=== PATIENT | female | born 1950 | race Caucasian/White ===

== ENCOUNTER 2024-05-07 16:13 | Observation (INO) ==
[2024-05-07 17:12] LABS: BASOPHILS # (AUTO) 0.3 X10^3/uL (0.0-0.1); BASOPHILS % (AUTO) 2.9 % (0.2-1.0); EOSINOPHILS # (AUTO) 0.4 x10^3/uL (0.0-0.2); EOSINOPHILS % (AUTO) 4.1 % (0.9-2.9); HEMATOCRIT 33.9 % (36.0-47.0); HEMOGLOBIN 11.3 g/dL (12.0-16.0); LYMPHOCYTES # (AUTO) 2.5 X10^3/uL (1.3-2.9); LYMPHOCYTES % (AUTO) 23.5 % (21.0-51.0); MEAN CORPUSCULAR HEMOGLOBIN 28.5 pg (27.0-34.0); MEAN CORPUSCULAR HGB CONC 33.3 g/dL (33.0-35.0); MEAN CORPUSCULAR VOLUME 85.7 fL (80.0-100.0); MEAN PLATELET VOLUME 8.5 fL (7.4-11.0); MONOCYTES # (AUTO) 0.3 x10^3/uL (0.3-0.8); MONOCYTES % (AUTO) 2.8 % (0.0-13.0); NEUTROPHILS # (AUTO) 7.1 x10^3/uL (2.2-4.8); NEUTROPHILS % (AUTO) 66.7 % (42.0-75.0); PLATELET COUNT 178 X10^3/uL (150.0-450.0); RED BLOOD COUNT 3.96 X10^6/uL (3.5-5.4); RED CELL DISTRIBUTION WIDTH 15.6 % (11.6-16.5); WHITE BLOOD COUNT 10.6 X10^3/uL (3.6-10.0)
[2024-05-07 17:23] LABS: ALANINE AMINOTRANSFERASE 22 Units/L (12-78); ALKALINE PHOSPHATASE 120 Units/L (46-116); ASPARTATE AMINO TRANSFERASE 23 Units/L (15-37); BLOOD UREA NITROGEN 7 mg/dL (7-18); CALCIUM 8.4 mg/dL (8.5-10.1); CARBON DIOXIDE 29.9 mmol/L (21-32); CHLORIDE 103 mmol/L (98-107); COR CA(FOR HYPOALB) 9.2 mg/dL (8.5-10.1); COR NA(FOR HYPERGLY) 140 mmol/L (136-145); CREATININE 1.08 mg/dL (0.55-1.02); GLUCOSE 114 mg/dL (65-99); LIPASE 35 Units/L (16-77); POTASSIUM 3.8 mmol/L (3.5-5.1); SODIUM 140 mmol/L (136-145); TOTAL PROTEIN 6.2 g/dL (6.4-8.2); eGFR NON BLACK RACES 53 (>60)
[2024-05-07 17:27] LABS: BILIRUBIN,URINE NEGATIVE (NEGATIVE); BLOOD/HEMOGLOBIN,URINE 2+ (NEGATIVE); GLUCOSE, URINE NEGATIVE (NEGATIVE); KETONES,URINE NEGATIVE (NEGATIVE); LEUKOCYTE ESTERASE ,URINE 1+ (NEGATIVE); NITRITES,URINE NEGATIVE (NEGATIVE); PROTEIN,URINE 1+ (NEGATIVE); UROBILINOGEN,URINE NORMAL (NORMAL)
[2024-05-07 17:34] LABS: APPEARANCE,URINE CLEAR (CLEAR); BACTERIA,URINE TRACE /HPF (NEGATIVE); COLOR,URINE PALE YELLOW (YELLOW); RBC,URINE 0-2 /HPF (0-3); SQUAMOUS EPITHELIAL CELL,UR RARE /HPF (NEGATIVE)
[2024-05-07] MEDS: ZOFRAN ODT PO PRN (17:56)
--- NOTE | 2024-05-07 21:24 | CT ---
EXAM: CT ABDOMEN AND PELVIS WITHOUT INTRAVENOUS CONTRAST HISTORY: Left-sided abdominal pain. TECHNIQUE: Spiral axial CT images are obtained through the abdomen and pelvis without the administrat ion of intravenous contrast. Additional coronal and sagittal reformatted images are reconstructed. COMPARISON: None available. FINDINGS: GASTROINTESTINAL TRACT: There is evidence for diffuse colonic diverticulosis with acute sigmoid diver ticulitis, marked by colonic wall thickening and pericolonic streaky inflammatory change. No drainabl e fluid collection, free air, or abscess formation seen. No evidence for bowel herniation, bowel obst ruction, or colitis. A normal-appearing appendix is seen. GENITOURINARY SYSTEM: The kidneys are unremarkable. There is no ureteral calculus or stigmata of obst ructive uropathy. The urinary bladder is grossly unremarkable for a non-dedicated exam. CT ABDOMEN: Status post cholecystectomy. Elongation of the right lobe of the liver (up to 21.8 cm CC ) in keeping with hepatomegaly versus Mt's lobe (anatomical variant). Aortoiliac atherosclerotic disease, without aneurysm formation. The spleen, pancreas, adrenal glands, and inferior vena cava are within normal limits for a noncontrast CT scan. There is no intra-abdominal or retroperitoneal lymp hadenopathy, free fluid, or free air seen. No abdominal herniation is noted. CT PELVIS: Status post hysterectomy. No pelvic sidewall or inguinal lymphadenopathy is seen. No i nguinal herniation is noted. No free fluid or free air is seen. BONES AND JOINTS: The visualized bony structures are within normal limits. LUNG BASES: The lung bases are clear. IMPRESSION: 1. Evidence for acute sigmoid diverticulitis, marked by colonic wall thickening and pericolonic stre aky inflammatory change. 2. No drainable fluid collection, free air, or abscess formation seen. 3. No evidence for bowel herniation, bowel obstruction, appendicitis or colitis. 4. No evidence for ureteral stones or obstructive uropathy. 5. Elongation of the right lobe of the liver (up to 21.8 cm CC) in keeping with hepatomegaly versus Mt's lobe (anatomical variant). 6. No free fluid, free air, mass lesions, or lymphadenopathy seen. 7. Status post cholecystectomy and hysterectomy. THIS IS AN ELECTRONICALLY VERIFIED FINAL REPORT 05/07/2024 9:11 PM - Electronically signed by Barrett Helton MD
[2024-05-07] MEDS ORDERED: NS 250 ML IV 25 ML IV PRN (21:43)
[2024-05-07] MEDS ORDERED: DECADRON INJ IM ONE (21:50)
--- NOTE | 2024-05-07 21:57 | ED.ABDFE ---
HPI Time Seen Time Seen by Provider: 05/07/24 16:56 PCP Primary Care Physician: Dmitriy Hardin Complaint Doctors Chief Complaint Comments: 73 yo F, hx of diverticulitis, also hx of idiopathic angioedema, c/o LLQ abd pain for past 2 wk, accomp by diarrhea. finished a course of cipro 5-6d ago, states pain became worse the past couple days, with radiation to bilat flank. c/o daily diarrhea 5-6x/d. States she woke with "hives" on extremities today. Denies dyspnea. Chief Complaint:: Pt c/o moderate sharp LLQ pain since 04/17/2024. Pt states sometimes it will radiate to the RLQ of her abdomen. Admits diarrhea. Denies fever, vomiting or chills. Pt states she did 10 days of Cipro and that seemed to help but returned after she completed her medication. COVID-19 Coronavirus risk:travel/contact w/high risk person: No Has patient experienced Coronavirus symptoms: No Source History Provided: Patient Mode of arrival Mode of Arrival: Ambulatory Timing Onset of Chief Complaint: 04/17/24 PMH PMH Past Medical History: Yes Past Medical History: GERD, Gout, Hypertension and Hypothyroidism Past Surgical History: Yes Surgical History: Cholecystectomy and Hysterectomy Past Surgical History Comment: Heart ablation Family History History of Family Medical Conditions: Yes Family Medical History: Diabetes Mellitus, Cancer, [place] and Hypertension Social History Type of Tobacco Use: None Alcohol Use: None Do you use any recreational Drugs:: No Lives With: Alone Lives Where: Home Travel Risk Coronavirus risk:travel/contact w/high risk person: No Has patient experienced Coronavirus symptoms: No Infectious screening Have you traveled outside the country in the last 6 months?: No Isolation: Standard ROS Review of Systems Gastrointestinal/Abdominal: Abdominal Pain (LLQ) and Diarrhea; negative Vomiting Integumentary: Rash All Other Systems: Reviewed and Negative PE Vital Signs Vitals: Vital Signs Temperature 98.1 F Pulse Rate 89 Respiratory Rate 18 Blood Pressure 140/63 O2 Sat by Pulse Oximetry 98 General Limitations: No Limitations and Language Barrier General Appearance: Alert and In No Apparent Distress Head Head Exam: Normal Inspection Eyes Eye exam: Normal Appearance ENT ENT Exam: Normal Exam Neck Neck Exam: Normal Inspection Chest Chest Inspection: Normal Inspection Respiratory Respiratory Exam: Normal Lung Sounds Bilat Cardiovascular Cardiovascular Exam: Regular Rate and Normal Rhythm Abdominal Exam Abdominal Exam: Soft; negative Guarding or Rebound Abdominal Tenderness: LLQ Rectal Rectal Exam: Deferred Back Back Exam: Normal Inspection Extremeties Extremities Exam: Normal Inspection Neurologic Neurological Exam: Alert and Oriented X3 Psychiatric Psychiatric Exam: Normal Affect and Normal Mood Skin Skin Exam: Rash (mild urticaria on all 4 ext.) COURSE Consultation Consultation Comments: Accepted to med/surg by Dr Barth at 2150 [facility] Labs Reviewed 05/07/24 17:03 05/07/24 17:03 Laboratory: WBC 10.6 X10^3/uL (3.6-10.0) H 05/07/24 17:03 RBC 3.96 X10^6/uL (3.5-5.4) 05/07/24 17:03 Hgb 11.3 g/dL (12.0-16.0) L 05/07/24 17:03 Hct 33.9 % (36.0-47.0) L 05/07/24 17:03 MCV 85.7 fL (80.0-100.0) 05/07/24 17:03 MCH 28.5 pg (27.0-34.0) 05/07/24 17:03 MCHC 33.3 g/dL (33.0-35.0) 05/07/24 17:03 RDW 15.6 % (11.6-16.5) 05/07/24 17:03 Plt Count 178 X10^3/uL (150.0-450.0) 05/07/24 17:03 MPV 8.5 fL (7.4-11.0) 05/07/24 17:03 Neut % (Auto) 66.7 % (42.0-75.0) 05/07/24 17:03 Lymph % (Auto) 23.5 % (21.0-51.0) 05/07/24 17:03 [place] % (Auto) 2.8 % (0.0-13.0) 05/07/24 17:03 Eos % (Auto) 4.1 % (0.9-2.9) H 05/07/24 17:03 Baso % (Auto) 2.9 % (0.2-1.0) H 05/07/24 17:03 Neut # (Auto) 7.1 x10^3/uL (2.2-4.8) H 05/07/24 17:03 Lymph # (Auto) 2.5 X10^3/uL (1.3-2.9) 05/07/24 17:03 [place] # (Auto) 0.3 x10^3/uL (0.3-0.8) 05/07/24 17:03 Eos # (Auto) 0.4 x10^3/uL (0.0-0.2) H 05/07/24 17:03 Baso # (Auto) 0.3 X10^3/uL (0.0-0.1) H 05/07/24 17:03 Absolute Nucleated RBC 0.1 /100WBC 05/07/24 17:03 Sodium 140 mmol/L (136-145) 05/07/24 17:03 Corrected Sodium 140 mmol/L (136-145) 05/07/24 17:03 Potassium 3.8 mmol/L (3.5-5.1) 05/07/24 17:03 Chloride 103 mmol/L (98-107) 05/07/24 17:03 Carbon Dioxide 29.9 mmol/L (21-32) 05/07/24 17:03 BUN 7 mg/dL (7-18) 05/07/24 17:03 Creatinine 1.08 mg/dL (0.55-1.02) H 05/07/24 17:03 Est GFR (MDRD) Af Amer > 60 (>60) 05/07/24 17:03 Est GFR (MDRD) Non-Af 53 (>60) L 05/07/24 17:03 Glucose 114 mg/dL (65-99) H 05/07/24 17:03 Calcium 8.4 mg/dL (8.5-10.1) L 05/07/24 17:03 Corrected Calcium 9.2 mg/dL (8.5-10.1) 05/07/24 17:03 Total Bilirubin 0.30 mg/dL (0.2-1.0) 05/07/24 17:03 AST 23 Units/L (15-37) 05/07/24 17:03 ALT 22 Units/L (12-78) 05/07/24 17:03 Alkaline Phosphatase 120 Units/L (46-116) H 05/07/24 17:03 Total Protein 6.2 g/dL (6.4-8.2) L 05/07/24 17:03 Albumin 3.0 g/dL (3.4-5.0) L 05/07/24 17:03 Globulin 3.2 g/dL (2.5-4.5) 05/07/24 17:03 Albumin/Globulin Ratio 0.9 Ratio (1.1-2.1) L 05/07/24 17:03 Lipase 35 Units/L (16-77) 05/07/24 17:03 Specimen Type Clean catch urine 05/07/24 17:14 Urine Color Pale yellow (YELLOW) 05/07/24 17:14 Urine Appearance Clear (CLEAR) 05/07/24 17:14 Urine pH 6.0 (5.0 - 8.0) 05/07/24 17:14 Ur Specific [place] 1.015 (1.000-1.030) 05/07/24 17:14 Urine Protein 1+ (NEGATIVE) 05/07/24 17:14 Urine Glucose (UA) Negative (NEGATIVE) 05/07/24 17:14 Urine Ketones Negative (NEGATIVE) 05/07/24 17:14 Urine Blood 2+ (NEGATIVE) 05/07/24 17:14 Urine Nitrite Negative (NEGATIVE) 05/07/24 17:14 Urine Bilirubin Negative (NEGATIVE) 05/07/24 17:14 Urine Urobilinogen Normal (NORMAL) 05/07/24 17:14 Ur Leukocyte Esterase 1+ (NEGATIVE) 05/07/24 17:14 Urine RBC 0-2 /HPF (0-3) 05/07/24 17:14 Urine WBC 0-2 /HPF (0-5) 05/07/24 17:14 Ur Squamous Epith Cells Rare /HPF (NEGATIVE) 05/07/24 17:14 Urine Bacteria Trace /HPF (NEGATIVE) 05/07/24 17:14 Ur Culture Indicated? No/not indicated 05/07/24 17:14 Opioid Opioid Risk Tool Age (Matt box if 16-45): No History of Preadolescent Sexual Abuse: No Total: 0 Total Score Risk Category: Low Risk Copyright: Ray OVIEDO predicting aberrant behaviors Discharge Plan Diagnosis Discharge Problem: Diverticulitis, Acute urticaria Discharge Plan Patient Disposition: 09 ADMITTED INPATIENT Condition: Stable Health Concerns: Post Hospitalization: new medications and changes needed to prevent readmission or further decline. Pt educated and given instructions on all concerns. Plan of Treatment: Continue with present treatment and follow up plan. Pt is to keep follow up appointment as instructed and take medications as ordered. Orders to Discharge Patient Discharge Orders: Transfer (Routine); Ordered 05/07/24 Ordered By: Ron Haney Follow ups/Referrals Follow ups/Referrals: Duane Hardin [Primary Care Provider] - 3 days Instructions Stand Alone Forms: Find Help Web Site, Post Hospital Follow Up Care
[2024-05-07] MEDS ORDERED: DECADRON INJ IVP ONE (22:17)
[2024-05-07] MEDS: NS 1,000 ML IV 1,000 ML IV SCH (22:34)
[2024-05-07] MEDS: FLAGYL IV PREMIX 500 MG BAG 500 MG/100 ML BAG IV SCH (22:34)
[2024-05-07] MEDS: BENADRYL INJ 50 MG VIAL IVP ONE (22:34)
[2024-05-07 23:31] VITALS: BMI 27.1
[2024-05-07] MEDS: ZOFRAN ODT ONE (23:46)
[2024-05-08] MEDS: ZOSYN VIAL 4.5 GRAMS 4.5 G in NS 100 ML IV 100 ML IV SCH (00:04)
[2024-05-08] MEDS: DECADRON INJ IVP ONE (00:08)
[2024-05-08 05:24] LABS: BASOPHILS % (AUTO) 0.3 % (0.2-1.0); EOSINOPHILS % (AUTO) 0.1 % (0.9-2.9); HEMATOCRIT 35.8 % (36.0-47.0); HEMOGLOBIN 11.7 g/dL (12.0-16.0); LYMPHOCYTES # (AUTO) 0.8 X10^3/uL (1.3-2.9); LYMPHOCYTES % (AUTO) 8.1 % (21.0-51.0); MEAN CORPUSCULAR HGB CONC 32.7 g/dL (33.0-35.0); MEAN CORPUSCULAR VOLUME 85.6 fL (80.0-100.0); MEAN PLATELET VOLUME 8.7 fL (7.4-11.0); MONOCYTES # (AUTO) 0.1 x10^3/uL (0.3-0.8); MONOCYTES % (AUTO) 0.5 % (0.0-13.0); NEUTROPHILS # (AUTO) 9.3 x10^3/uL (2.2-4.8); PLATELET COUNT 184 X10^3/uL (150.0-450.0); RED BLOOD COUNT 4.18 X10^6/uL (3.5-5.4); RED CELL DISTRIBUTION WIDTH 15.5 % (11.6-16.5); WHITE BLOOD COUNT 10.2 X10^3/uL (3.6-10.0)
[2024-05-08 05:48] LABS: ALANINE AMINOTRANSFERASE 25 Units/L (12-78); ALKALINE PHOSPHATASE 108 Units/L (46-116); ASPARTATE AMINO TRANSFERASE 26 Units/L (15-37); BLOOD UREA NITROGEN 5 mg/dL (7-18); CALCIUM 8.8 mg/dL (8.5-10.1); CARBON DIOXIDE 29.1 mmol/L (21-32); CHLORIDE 106 mmol/L (98-107); COR CA(FOR HYPOALB) 9.6 mg/dL (8.5-10.1); COR NA(FOR HYPERGLY) 144 mmol/L (136-145); CREATININE 0.98 mg/dL (0.55-1.02); GLUCOSE 153 mg/dL (65-99); MAGNESIUM 1.9 mg/dL (2.0-2.9); POTASSIUM 4.2 mmol/L (3.5-5.1); SODIUM 143 mmol/L (136-145); TOTAL PROTEIN 6.3 g/dL (6.4-8.2); eGFR NON BLACK RACES 59 (>60)
[2024-05-08 06:58] LABS: PLATELET MORPHOLOGY COMMENT NORMAL (NORMAL)
[2024-05-08 07:00] LABS: STOMATOCYTES PRESENT
[2024-05-08] MEDS ORDERED: CONSULT PHARMACY - POTASSIUM & MAGNESIUM XX SCH (07:00)
[2024-05-08] MEDS: MAG-OX TAB PO SCH (08:52)
--- NOTE | 2024-05-08 11:44 | DR.H&P ---
H&P History & Physical for Day of: H&P Date: 05/08/24 Chief Complaint Chief Complaint: abdominal pain nausea History of Present Illness History of Present Illness: Patient is a 73-year-old female with a past medical history of hypertension, hypothyroidism, gout, presenting with worsening lower abdominal pain. She reports pain has been present since [place] but has been gradually getting worse. She reports that yesterday pain became acutely worse. She also reports having some nausea. Denies fevers, chills. Labs/imaging: WBC 10.2, hemoglobin 11.7, platelets 184, sodium 143, potassium 4.2, creatinine 0.98, glucose 153, UA negative, CT of the abdomen pelvis was obtained that revealed a sigmoid diverticulitis. Patient was admitted for sigmoid diverticulitis. Patient is currently n.p.o. except for meds. Will advance her diet to clear liquid diet. Continue with IV fluids normal saline at 75 mL/h, IV antibiotics Zosyn and Flagyl. Restart home medications. Otherwise continue with current treatment plan. Continue closely monitor and follow-up labs/imaging. Past Medical History Past Medical History: GERD, Gout, Hypertension and Hypothyroidism Past Surgical History Surgical History: Cholecystectomy and Hysterectomy Family History Family Medical History: Cancer Social History Does patient currently use any type of tobacco product: No Type of Tobacco Use: None Does any household member use tobacco: No Alcohol Use: None Drug Use: None Medications Home Medications: Home Medications Medication Instructions Recorded Confirmed Type allopurinol 100 mg tablet 100 mg PO QDAY 05/07/24 05/07/24 History clonazepam 0.5 mg tablet (Klonopin) 0.5 mg PO BID 05/07/24 05/07/24 History diltiazem HCl 120 mg 120 mg PO QDAY 05/07/24 05/07/24 History capsule,extended release 24 hr (Cartia XT) diphenhydramine HCl 25 mg tablet 25 mg PO PRN PRN 05/07/24 05/07/24 History escitalopram oxalate 20 mg tablet 20 mg PO QDAY 05/07/24 05/07/24 History omeprazole 20 mg capsule,delayed 20 mg PO QDAY 05/07/24 05/07/24 History release thyroid (pork) 30 mg tablet 30 mg PO QDAY 05/07/24 05/07/24 History ([place] Thyroid) valsartan 40 mg tablet (Diovan) 40 mg PO BID 05/07/24 05/07/24 History Allergies Allergies Allergy/AdvReac Type Severity Reaction Status Date / Time levofloxacin [From Levaquin] Allergy Mild Unverified 05/07/24 16:26 meperidine [From Demerol] Allergy Mild Unverified 05/07/24 16:26 cefaclor [From Ceclor] Allergy Verified 05/07/24 16:26 celecoxib [From Celebrex] Allergy Unverified 05/07/24 16:26 egg Allergy Unverified 05/07/24 16:26 iodine Allergy Verified 05/07/24 16:26 nut - unspecified Allergy Unverified 05/07/24 16:26 Labs 05/08/24 04:57 05/08/24 04:57 Labs: Laboratory WBC 10.2 X10^3/uL (3.6-10.0) H 05/08/24 04:57 RBC 4.18 X10^6/uL (3.5-5.4) 05/08/24 04:57 Hgb 11.7 g/dL (12.0-16.0) L 05/08/24 04:57 Hct 35.8 % (36.0-47.0) L 05/08/24 04:57 MCV 85.6 fL (80.0-100.0) 05/08/24 04:57 MCH 28.0 pg (27.0-34.0) 05/08/24 04:57 MCHC 32.7 g/dL (33.0-35.0) L 05/08/24 04:57 RDW 15.5 % (11.6-16.5) 05/08/24 04:57 Plt Count 184 X10^3/uL (150.0-450.0) 05/08/24 04:57 Plt Count Comment Adequate (ADEQUATE) 05/08/24 04:57 MPV 8.7 fL (7.4-11.0) 05/08/24 04:57 Neut % (Auto) 91.0 % (42.0-75.0) H 05/08/24 04:57 Lymph % (Auto) 8.1 % (21.0-51.0) L 05/08/24 04:57 [place] % (Auto) 0.5 % (0.0-13.0) 05/08/24 04:57 Eos % (Auto) 0.1 % (0.9-2.9) L 05/08/24 04:57 Baso % (Auto) 0.3 % (0.2-1.0) 05/08/24 04:57 Neut # (Auto) 9.3 x10^3/uL (2.2-4.8) H 05/08/24 04:57 Lymph # (Auto) 0.8 X10^3/uL (1.3-2.9) L 05/08/24 04:57 [place] # (Auto) 0.1 x10^3/uL (0.3-0.8) L 05/08/24 04:57 Eos # (Auto) 0.0 x10^3/uL (0.0-0.2) 05/08/24 04:57 Baso # (Auto) 0.0 X10^3/uL (0.0-0.1) 05/08/24 04:57 Absolute Nucleated RBC 0.0 /100WBC 05/08/24 04:57 Total Counted 100 05/08/24 04:57 Neutrophils % (Manual) 93 % (39-76) H 05/08/24 04:57 Lymphocytes % (Manual) 7 % (13-43) L 05/08/24 04:57 Plt Morphology Comment Normal (NORMAL) 05/08/24 04:57 RBC Morphology Abnormal (NORMAL) A 05/08/24 04:57 Stomatocytes Present 05/08/24 04:57 Sodium 143 mmol/L (136-145) 05/08/24 04:57 Corrected Sodium 144 mmol/L (136-145) 05/08/24 04:57 Potassium 4.2 mmol/L (3.5-5.1) 05/08/24 04:57 Chloride 106 mmol/L (98-107) 05/08/24 04:57 Carbon Dioxide 29.1 mmol/L (21-32) 05/08/24 04:57 BUN 5 mg/dL (7-18) L 05/08/24 04:57 Creatinine 0.98 mg/dL (0.55-1.02) 05/08/24 04:57 Est GFR (MDRD) Af Amer > 60 (>60) 05/08/24 04:57 Est GFR (MDRD) Non-Af 59 (>60) 05/08/24 04:57 Glucose 153 mg/dL (65-99) H 05/08/24 04:57 Calcium 8.8 mg/dL (8.5-10.1) 05/08/24 04:57 Corrected Calcium 9.6 mg/dL (8.5-10.1) 05/08/24 04:57 Magnesium 1.9 mg/dL (2.0-2.9) L 05/08/24 04:57 Total Bilirubin 0.50 mg/dL (0.2-1.0) 05/08/24 04:57 AST 26 Units/L (15-37) 05/08/24 04:57 ALT 25 Units/L (12-78) 05/08/24 04:57 Alkaline Phosphatase 108 Units/L (46-116) 05/08/24 04:57 Total Protein 6.3 g/dL (6.4-8.2) L 05/08/24 04:57 Albumin 3.0 g/dL (3.4-5.0) L 05/08/24 04:57 Globulin 3.3 g/dL (2.5-4.5) 05/08/24 04:57 Albumin/Globulin Ratio 0.9 Ratio (1.1-2.1) L 05/08/24 04:57 Lipase 35 Units/L (16-77) 05/07/24 17:03 Specimen Type Clean catch urine 05/07/24 17:14 Urine Color Pale yellow (YELLOW) 05/07/24 17:14 Urine Appearance Clear (CLEAR) 05/07/24 17:14 Urine pH 6.0 (5.0 - 8.0) 05/07/24 17:14 Ur Specific [place] 1.015 (1.000-1.030) 05/07/24 17:14 Urine Protein 1+ (NEGATIVE) 05/07/24 17:14 Urine Glucose (UA) Negative (NEGATIVE) 05/07/24 17:14 Urine Ketones Negative (NEGATIVE) 05/07/24 17:14 Urine Blood 2+ (NEGATIVE) 05/07/24 17:14 Urine Nitrite Negative (NEGATIVE) 05/07/24 17:14 Urine Bilirubin Negative (NEGATIVE) 05/07/24 17:14 Urine Urobilinogen Normal (NORMAL) 05/07/24 17:14 Ur Leukocyte Esterase 1+ (NEGATIVE) 05/07/24 17:14 Urine RBC 0-2 /HPF (0-3) 05/07/24 17:14 Urine WBC 0-2 /HPF (0-5) 05/07/24 17:14 Ur Squamous Epith Cells Rare /HPF (NEGATIVE) 05/07/24 17:14 Urine Bacteria Trace /HPF (NEGATIVE) 05/07/24 17:14 Ur Culture Indicated? No/not indicated 05/07/24 17:14 Review of Systems Constitutional: No Symptoms Reported Eyes: No Symptoms Reported ENT: No Symptoms Reported Respiratory: No Symptoms Reported Cardiovascular: No Symptoms Reported Gastrointestinal: Nausea and Abdominal Pain Genitourinary: No Symptoms Reported Musculoskeletal: No Symptoms Reported Skin: No Symptoms Reported Neurological: No Symptoms Reported Physical Exam Vital Signs: Vital Signs Temperature 97.5 F Temperature 98.3 F Pulse Rate [Left] 65 Pulse Rate [Left] 76 Respiratory Rate 18 Respiratory Rate 18 Blood Pressure [Right Arm] 112/57 Blood Pressure [Right Arm] 119/63 O2 Sat by Pulse Oximetry 92 O2 Sat by Pulse Oximetry 94 Oriented: Normal Eyes: Normal Ear: Normal Nose: Normal Throat: Normal Respiratory: Clear Throughout Cardiovascular: Normal : Normal Auscultation: Bowel Sounds: Normal Palpation: Normal Tenderness: LLQ and Mild Skin: Normal Musculoskeletal: Normal Psychiatric: Normal Mood Description: Calm and Appropriate Affect: Normal Speech Pattern: Clear and Appropriate Assessment/Plan (1) Diverticulitis: Status: Acute Plan: CLD, IV antibiotics IVF Review H&P Reviewed: Yes Patient was examined?: Yes
[2024-05-08] MEDS ORDERED: LEXAPRO ONE (12:20)
[2024-05-08] MEDS: CARDIZEM CD 120 MG 24-HR PO SCH (12:31)
[2024-05-08] MEDS: ZYLOPRIM PO SCH (12:31)
[2024-05-08] MEDS: LEXAPRO PO SCH (12:32)
[2024-05-08] MEDS: PriLOSEC PO SCH (12:32)
[2024-05-08] MEDS: DIOVAN TAB 80 MG PO SCH (12:33)
[2024-05-08] MEDS: KLONOPIN TAB 0.5 MG PO SCH (12:34)
[2024-05-08] MEDS: PATIENT'S HOME MEDICATION (Thyroid (Pork) [Armour Thyroid] 30 mg tablet) PO SCH (12:35)
[2024-05-08] MEDS: TYLENOL 325 MG TAB PO PRN (16:23)
[2024-05-09 05:10] LABS: BASOPHILS % (AUTO) 0.1 % (0.2-1.0); HEMATOCRIT 31.6 % (36.0-47.0); HEMOGLOBIN 10.2 g/dL (12.0-16.0); LYMPHOCYTES # (AUTO) 1.2 X10^3/uL (1.3-2.9); LYMPHOCYTES % (AUTO) 11.2 % (21.0-51.0); MEAN CORPUSCULAR HEMOGLOBIN 27.8 pg (27.0-34.0); MEAN CORPUSCULAR HGB CONC 32.2 g/dL (33.0-35.0); MEAN CORPUSCULAR VOLUME 86.2 fL (80.0-100.0); MEAN PLATELET VOLUME 9.2 fL (7.4-11.0); MONOCYTES # (AUTO) 0.3 x10^3/uL (0.3-0.8); MONOCYTES % (AUTO) 2.7 % (0.0-13.0); NEUTROPHILS # (AUTO) 9.5 x10^3/uL (2.2-4.8); PLATELET COUNT 168 X10^3/uL (150.0-450.0); RED BLOOD COUNT 3.66 X10^6/uL (3.5-5.4); RED CELL DISTRIBUTION WIDTH 15.7 % (11.6-16.5)
[2024-05-09 05:18] LABS: BLOOD UREA NITROGEN 7 mg/dL (7-18); CALCIUM 8.6 mg/dL (8.5-10.1); CARBON DIOXIDE 29.5 mmol/L (21-32); CHLORIDE 106 mmol/L (98-107); COR NA(FOR HYPERGLY) 143 mmol/L (136-145); CREATININE 0.83 mg/dL (0.55-1.02); GLUCOSE 141 mg/dL (65-99); POTASSIUM 3.9 mmol/L (3.5-5.1); SODIUM 142 mmol/L (136-145); eGFR NON BLACK RACES > 60 (>60)
[2024-05-09] MEDS ORDERED: LEXAPRO ONE (08:51)
[2024-05-09 12:52] LABS: ALANINE AMINOTRANSFERASE 27 Units/L (12-78); ALBUMIN 2.6 g/dL (3.4-5.0); ALKALINE PHOSPHATASE 81 Units/L (46-116); ASPARTATE AMINO TRANSFERASE 21 Units/L (15-37); COR CA(FOR HYPOALB) 9.7 mg/dL (8.5-10.1); TOTAL PROTEIN 5.6 g/dL (6.4-8.2)
[2024-05-09 16:07] VITALS: BP 170/66; PULSE 68; RESP 21; TEMP 97; O2SAT 97
== END 2024-05-09 16:12 | disposition home or self-care (01) ==
LOC: MED/SURG 16:13 → ER 16:13 → MED/SURG 22:48
PROVIDERS: ADMIT Family Medicine; ATTEND Internal Medicine